=== PATIENT | female | born 1995 | race Caucasian/White ===

== ENCOUNTER 2019-07-12 21:35 | Inpatient (IN) ==
[2019-07-12 22:31] LABS: Basophils % 0.2 % (0.0-0.8); Eosinophils # 0.1 10*3/uL (0.0-0.87); Eosinophils % 0.5 % (0.00-10.9); Hematocrit 32.8 VOL% (35.7-47.0); Hemoglobin 11.2 GM/DL (12.0-16.0); Immature Granulocytes % 0.5 %; Immature Granulocytes Absolute 0.06 #; Lymphocytes # 2.7 10*3/uL (1.4-4.0); Mean Corpuscular HGB Conc 34.1 GM/DL (32-36); Mean Corpuscular Volume 93.7 FL (87-102); Mean Platelet Volume 10.3 FL (9.6-12.0); Monocytes % 9.6 % (1.7-12.7); Neutrophils % 67.2 % (38.7-73.9); Platelet Count 277 T/CUMM (130-400); Red Cell Distribution Width 12.7 % (9.3-17.3); White Blood Count 12.3 T/CUMM (4-12)
[2019-07-12 22:46] LABS: Alanine Aminotransferase 13 U/L (13-56); Albumin 2.7 G/DL (3.4-5.0); Alkaline Phosphatase 218 U/L (45-117); Aspartate Amino Transferase 10 U/L (0-37); Bilirubin,Total < 0.39 MG/DL (0.2-1.0); Blood Urea Nitrogen 8 MG/DL (7-18); Calcium 8.1 MG/DL (8.5-10.1); Estimated Glom Filtration Rate 133 ML/MIN; Glucose 72 MG/DL (74-106); Osmolality,Calculated 275.4 MOS/KG (273-304); Total Protein 6.3 G/DL (6.4-8.3)
[2019-07-13] MEDS: BUTORPHANOL 2 MG/ML VIAL IV PRN ×3 (04:17→10:24)
[2019-07-13] MEDS: ONDANSETRON 4 MG/2 ML VIAL IV PRN ×2 (04:18→09:59)
[2019-07-13] MEDS ORDERED: TERBUTALINE 1 MG/1 ML VIAL SUBCUT ONE (12:32)
[2019-07-13] MEDS ORDERED: TERBUTALINE 1 MG/1 ML VIAL SUBCUT PRN (12:32)
[2019-07-13] MEDS: LACTATED RINGERS 1,000 ML IV SCH ×2 (12:38→14:28)
[2019-07-13] MEDS ORDERED: ePHEDrine 50 MG/ML AMP IV PRN (14:07)
[2019-07-13] MEDS ORDERED: diphenhydrAMINE 50 MG/1 ML VIAL IV PRN ×2 (14:07)
[2019-07-13] MEDS ORDERED: NALOXONE 0.4 MG/ML VIAL IV PRN (14:07)
[2019-07-13] MEDS ORDERED: CITRIC ACID/SODIUM CITRATE 30 ML UDCUP PO ONE (14:07)
[2019-07-13] MEDS ORDERED: FAMOTIDINE 20 MG/2 ML VIAL IV ONE (14:07)
[2019-07-13] MEDS ORDERED: LACTATED RINGERS 1,000 ML IV ONE (14:07)
[2019-07-13] MEDS ORDERED: fentaNYL 2 MCG/ROPIV 0.2% EPID 100 ML EPIDURAL SCH (14:30)
[2019-07-13 15:31] LABS: Apearance,Urine CLEAR (Clear); Bacteria,Urine Occasional /HPF (Few); Bilirubin,Urine Negative (Negative); Blood, Urine Small mg/dL (Negative); Glucose,Urine (UA) Negative (Negative); Hyaline Casts,Urine 1 /LPF (0-3); Ketones,Urine 80 mg/dL (Negative); Mucus,Urine Occasional /LPF (Occasional); Nitrite,Urine Negative (Negative); Protein,Urine Negative; RBC,Urine 1 /HPF (0-4); Squamous Epithelial Cell,Urine Occasional /HPF (0-10); Urine Color Yellow (Yellow); Urine Specific Gravity 1.018 (1.001-1.035); Urine Urobilinogen < 2.0 EU/DL (0.2-1.0); WBC,Urine 1 /HPF (0-6)
[2019-07-13] MEDS ORDERED: TRANEXAMIC ACID 1,000 MG/10 ML VIAL ONE (15:32)
[2019-07-13] MEDS ORDERED: miSOPROStoL 200 MCG TABLET ONE (15:32)
[2019-07-13] MEDS ORDERED: OXYTOCIN/LR 20 UNIT/1,000 ML BAG IV ONE ×3 (15:32→17:16)
[2019-07-13] MEDS ORDERED: METHYLERGONOVINE 0.2 MG/1 ML AMP ONE (15:32)
[2019-07-13] MEDS ORDERED: CARBOPROST TROMETHAMINE 250 MCG/ML AMP IM ONE (15:33)
[2019-07-13] MEDS ORDERED: LIDOCAINE 1% 50 ML VIAL ONE (15:51)
[2019-07-13] MEDS ORDERED: DIPH/TET/ACEL PERT BOOSTER VACCINE 0.5 ML VIAL IM ONE (17:16)
[2019-07-13] MEDS ORDERED: BISACODYL 10 MG SUPP RECTAL PRN (17:16)
[2019-07-13] MEDS ORDERED: LANOLIN 50% CREAM 0.3 OZ TUBE TOP PRN (17:16)
[2019-07-13] MEDS ORDERED: WITCH HAZEL PADS 100/JAR TOP PRN (17:16)
[2019-07-13] MEDS ORDERED: ONDANSETRON 4 MG/2 ML VIAL IV PRN (17:16)
[2019-07-13] MEDS ORDERED: oxyCODONE/ACETAMINOPHEN 5-325 MG TABLET PO PRN (17:16)
[2019-07-13] MEDS ORDERED: RHO(D) IMMUNE GLOBULIN 300 MCG SYRINGE IM ONE (17:16)
[2019-07-13] MEDS ORDERED: HYDROCORTISONE 2.5% RECTAL CREAM 30 GM TUBE TOP PRN (17:16)
[2019-07-13] MEDS ORDERED: BENZOCAINE 20%/MENTHOL 0.5% SPRAY 56 GM CAN TOP PRN (17:16)
[2019-07-13] MEDS ORDERED: ACETAMINOPHEN 325 MG TABLET PO PRN (17:16)
[2019-07-13] MEDS ORDERED: MEASLES/MUMPS/RUBELLA VACCINE 0.5 ML VIAL SUBCUT ONE (17:16)
[2019-07-13 17:36] LABS: Cord Venous Blood HCO3 14.4 MMOL/L; Cord Venous Blood PCO2 44.1 MMHG; Cord Venous Blood PO2 26.3
[2019-07-13] MEDS: IBUPROFEN 800 MG TABLET PO PRN (20:23)
[2019-07-13] MEDS: DOCUSATE SODIUM 100 MG CAPSULE PO SCH (21:25)
[2019-07-13] MEDS: oxyCODONE/ACETAMINOPHEN 5-325 MG TABLET PO PRN (22:08)
[2019-07-14] MEDS: IBUPROFEN 800 MG TABLET PO PRN ×2 (02:02→11:41)
[2019-07-14 05:39] LABS: Basophils % 0.2 % (0.0-0.8); Eosinophils # 0.1 10*3/uL (0.0-0.87); Eosinophils % 0.3 % (0.00-10.9); Hematocrit 35.9 VOL% (35.7-47.0); Hemoglobin 11.9 GM/DL (12.0-16.0); Immature Granulocytes % 0.6 %; Immature Granulocytes Absolute 0.12 #; Lymphocytes # 3.8 10*3/uL (1.4-4.0); Lymphocytes % 20.1 % (21.3-54.2); Mean Corpuscular HGB Conc 33.1 GM/DL (32-36); Mean Platelet Volume 10.5 FL (9.6-12.0); Monocytes % 9.2 % (1.7-12.7); Neutrophils % 69.6 % (38.7-73.9); Platelet Count 247 T/CUMM (130-400); Red Blood Count 3.78 MC/CUMM (3.8-5.5); Red Cell Distribution Width 12.8 % (9.3-17.3); White Blood Count 18.9 T/CUMM (4-12)
[2019-07-14] MEDS: DOCUSATE SODIUM 100 MG CAPSULE PO SCH ×2 (10:05→20:22)
[2019-07-14] MEDS: oxyCODONE/ACETAMINOPHEN 5-325 MG TABLET PO PRN ×2 (10:08→18:20)
[2019-07-15] MEDS: IBUPROFEN 800 MG TABLET PO PRN ×2 (00:49→09:45)
[2019-07-15 09:13] VITALS: BP 96/66
[2019-07-15] MEDS: DOCUSATE SODIUM 100 MG CAPSULE PO SCH (09:45)
== END 2019-07-15 11:15 | disposition home or self-care (01) | DRG 807 ==
LOC: N.LD 21:35 → N.OB 07-13 20:55
PROVIDERS: ADMIT Specialist; ATTEND Specialist

== ENCOUNTER 2022-04-23 20:02 | Inpatient (IN) ==
[2022-04-23] MEDS ORDERED: CARBOPROST TROMETHAMINE 250 MCG/ML AMP IM PRN (20:12)
[2022-04-23] MEDS ORDERED: LACTATED RINGERS 500 ML IV PRN (20:12)
[2022-04-23] MEDS ORDERED: OXYTOCIN/LR 20 UNIT/1,000 ML BAG IV ONE (20:12)
[2022-04-23] MEDS ORDERED: ONDANSETRON 4 MG/2 ML VIAL IV PRN (20:12)
[2022-04-23] MEDS ORDERED: BUTORPHANOL 2 MG/ML VIAL IV PRN (20:12)
[2022-04-23] MEDS ORDERED: TRANEXAMIC ACID 1,000 MG in SODIUM CHLORIDE 0.9% 100 ML IV PRN (20:12)
[2022-04-23] MEDS ORDERED: miSOPROStoL 200 MCG TABLET RECTAL PRN (20:12)
[2022-04-23] MEDS ORDERED: LACTATED RINGERS 250 ML IV ONE (20:12)
[2022-04-23] MEDS ORDERED: METHYLERGONOVINE 0.2 MG/1 ML AMP IM PRN (20:12)
[2022-04-23] MEDS ORDERED: MEPERIDINE 50 MG/1 ML VIAL IV PRN (20:12)
[2022-04-23] MEDS ORDERED: LACTATED RINGERS 1,000 ML IV SCH (20:30)
[2022-04-23 21:35] LABS: Basophils % 0.1 % (0.0-0.8); Eosinophils # 0.1 10*3/uL (0.0-0.87); Eosinophils % 0.9 % (0.00-10.9); Hematocrit 38.2 VOL% (35.7-47.0); Hemoglobin 12.3 GM/DL (12.0-16.0); Immature Granulocytes % 0.3 %; Immature Granulocytes Absolute 0.03 #; Lymphocytes # 2.2 10*3/uL (1.4-4.0); Lymphocytes % 21.1 % (21.3-54.2); Mean Corpuscular HGB Conc 32.2 GM/DL (32-36); Mean Corpuscular Volume 84.7 FL (87-102); Monocytes # 0.8 10*3/uL (0.11-0.8); Monocytes % 7.6 % (1.7-12.7); Platelet Count 257 T/CUMM (130-400); Red Blood Count 4.51 MC/CUMM (3.8-5.5); Red Cell Distribution Width 13.3 % (9.3-17.3); White Blood Count 10.3 T/CUMM (4-12)
[2022-04-24] MEDS ORDERED: diphenhydrAMINE 50 MG/1 ML VIAL IV PRN ×2 (08:04)
[2022-04-24] MEDS ORDERED: PROMETHAZINE 25 MG/1 ML VIAL IM ONE (08:04)
[2022-04-24] MEDS ORDERED: hydrOXYzine HCL 25 MG/1 ML VIAL IM PRN (08:04)
[2022-04-24] MEDS ORDERED: FAMOTIDINE 20 MG/2 ML VIAL IV ONE (08:04)
[2022-04-24] MEDS ORDERED: NALOXONE 0.4 MG/ML VIAL IV PRN (08:04)
[2022-04-24] MEDS ORDERED: CITRIC ACID/SODIUM CITRATE 30 ML UDCUP PO ONE (08:04)
[2022-04-24] MEDS ORDERED: ePHEDrine 50 MG/ML VIAL IV PRN (08:04)
[2022-04-24] MEDS ORDERED: METHYLERGONOVINE 0.2 MG/1 ML AMP ONE (08:25)
[2022-04-24] MEDS ORDERED: TRANEXAMIC ACID 1,000 MG/10 ML VIAL ONE (08:25)
[2022-04-24] MEDS ORDERED: miSOPROStoL 200 MCG TABLET ONE (08:25)
[2022-04-24] MEDS ORDERED: OXYTOCIN/LR 20 UNIT/1,000 ML BAG IV ONE ×3 (08:25→12:12)
[2022-04-24] MEDS ORDERED: SODIUM CHLORIDE 0.9% 0 ML IV ONE (08:25)
[2022-04-24] MEDS ORDERED: CARBOPROST TROMETHAMINE 250 MCG/ML AMP IM ONE (08:26)
[2022-04-24] MEDS ORDERED: fentaNYL 2 MCG/ROPIV 0.2% EPID 100 ML EPIDURAL SCH (08:30)
[2022-04-24 09:59] LABS: Cord Arterial Blood HCO3 19.4 MMOL/L
[2022-04-24 10:01] LABS: Mucus,Urine Occasional /LPF (Occasional); RBC,Urine 1 /HPF (0-4); Squamous Epithelial Cell,Urine Occasional /HPF (0-10)
[2022-04-24 10:02] LABS: Cord Venous Blood PCO2 43.9 MMHG
[2022-04-24 10:02] LABS: Bilirubin,Urine Negative (Negative); Blood, Urine Negative (Negative); Glucose,Urine (UA) Negative (Negative); Ketones,Urine Negative (Negative); Nitrite,Urine Negative (Negative); Protein,Urine Negative (Negative); Urine Appearance Clear (Clear); Urine Color Yellow (Yellow); Urine pH 8.5 (4.5-8.0)
[2022-04-24] MEDS ORDERED: ACETAMINOPHEN 325 MG TABLET PO PRN (12:12)
[2022-04-24] MEDS ORDERED: WITCH HAZEL PADS 100/JAR TOP PRN (12:12)
[2022-04-24] MEDS ORDERED: DIPH/TET/ACEL PERT BOOSTER VACCINE 0.5 ML VIAL IM ONE (12:12)
[2022-04-24] MEDS ORDERED: MEASLES/MUMPS/RUBELLA VACCINE 0.5 ML VIAL SUBCUT ONE (12:12)
[2022-04-24] MEDS ORDERED: oxyCODONE/ACETAMINOPHEN 5-325 MG TABLET PO PRN (12:12)
[2022-04-24] MEDS ORDERED: HYDROCORTISONE 2.5% RECTAL CREAM 30 GM TUBE TOP PRN (12:12)
[2022-04-24] MEDS ORDERED: RHO(D) IMMUNE GLOBULIN 300 MCG SYRINGE IM ONE (12:12)
[2022-04-24] MEDS ORDERED: BISACODYL 10 MG SUPP RECTAL PRN (12:12)
[2022-04-24] MEDS ORDERED: LANOLIN 50% CREAM 0.3 OZ TUBE TOP PRN (12:12)
[2022-04-24] MEDS ORDERED: BENZOCAINE 20%/MENTHOL 0.5% SPRAY 56 GM CAN TOP PRN (12:12)
[2022-04-24] MEDS ORDERED: ONDANSETRON 4 MG/2 ML VIAL IV PRN (12:12)
[2022-04-24] MEDS: IBUPROFEN 800 MG TABLET PO PRN (12:23)
[2022-04-24] MEDS: oxyCODONE/ACETAMINOPHEN 5-325 MG TABLET PO PRN (20:20)
[2022-04-24] MEDS: DOCUSATE SODIUM 100 MG CAPSULE PO SCH (20:37)
[2022-04-25] MEDS: IBUPROFEN 800 MG TABLET PO PRN ×2 (01:08→09:56)
[2022-04-25 05:47] LABS: Basophils % 0.3 % (0.0-0.8); Eosinophils # 0.1 10*3/uL (0.0-0.87); Hematocrit 28.4 VOL% (35.7-47.0); Immature Granulocytes % 0.5 %; Immature Granulocytes Absolute 0.07 #; Lymphocytes # 3.8 10*3/uL (1.4-4.0); Lymphocytes % 26.6 % (21.3-54.2); Mean Corpuscular HGB Conc 31.7 GM/DL (32-36); Mean Corpuscular Volume 86.9 FL (87-102); Mean Platelet Volume 10.1 FL (9.6-12.0); Monocytes # 1.3 10*3/uL (0.11-0.8); Monocytes % 9.2 % (1.7-12.7); Neutrophils % 62.4 % (38.7-73.9); Platelet Count 303 T/CUMM (130-400); Red Blood Count 3.27 MC/CUMM (3.8-5.5); Red Cell Distribution Width 13.6 % (9.3-17.3); White Blood Count 14.3 T/CUMM (4-12)
[2022-04-25] MEDS: oxyCODONE/ACETAMINOPHEN 5-325 MG TABLET PO PRN ×2 (07:00→20:02)
[2022-04-25] MEDS: DOCUSATE SODIUM 100 MG CAPSULE PO SCH ×2 (09:55→21:14)
[2022-04-25] MEDS: FERROUS SULFATE 325 MG TABLET PO SCH (11:48)
[2022-04-26] MEDS: FERROUS SULFATE 325 MG TABLET PO SCH ×2 (00:03→08:38)
[2022-04-26] MEDS: IBUPROFEN 800 MG TABLET PO PRN (03:32)
[2022-04-26 08:22] VITALS: BP 105/52
[2022-04-26] MEDS: DOCUSATE SODIUM 100 MG CAPSULE PO SCH (08:37)
== END 2022-04-26 11:30 | disposition home or self-care (01) | DRG 807 ==
LOC: N.LDOUT 20:02 → N.LD 20:03 → N.OB 04-24 12:11
PROVIDERS: ADMIT Specialist; ATTEND Specialist